=== PATIENT | female | born 1985 | race Hispanic/Latino ===

== ENCOUNTER 2017-07-20 06:46 | Emergency (ER) | payer BC ==
[2017-07-20 07:39] VITALS: BMI 22.4
--- NOTE | 2017-07-20 08:36 | ED PDOC ---
HPI: Eye Injury/Pain Time Seen by Provider: 07/20/17 07:05 Chief Complaint (Nursing): Eye Problem Chief Complaint (Provider): Eye Problem History Per: Patient History/Exam Limitations: no limitations Onset/Duration Of Symptoms: Hrs Current Symptoms Are (Timing): Still Present Associated Symptoms: denies: Pain, Decreased Vision Additional Complaint(s): Mei Gutiérrez, a 31 year old female, presents to the ED complaining that she is having a hard time focusing. The patient states that she looked at the eclipse yesterday, with glasses and then an hour later her symptoms began. She reports that she was using contacts then but now she is using her glasses and it feels like the same thing. Patient also notes feeling bit light headed. Denies eye pain, loss of vision Past Medical History Reviewed: Historical Data, Nursing Documentation, Vital Signs - Medical History PMH: No Chronic Diseases - Surgical History Surgical History: No Surg Hx - Family History Family History: States: Unknown Family Hx - Immunization History Hx Tetanus Toxoid Vaccination: No Hx Influenza Vaccination: No Hx Pneumococcal Vaccination: No - Allergies Allergies/Adverse Reactions: Allergies Allergy/AdvReac Type Severity Reaction Status Date / Time miconazole Allergy RASH Verified 07/20/17 07:39 [From Neosporin AF] Review of Systems ROS Statement: Except As Marked, All Systems Reviewed And Found Negative Eyes: Negative for: Pain, Vision Change Physical Exam - Reviewed Nursing Documentation Reviewed: Yes Vital Signs Reviewed: Yes - Physical Exam Appears: Positive for: Non-toxic, No Acute Distress Head Exam: Positive for: ATRAUMATIC, NORMAL INSPECTION, NORMOCEPHALIC Eye Exam: Positive for: Normal appearance, EOMI, PERRL. 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 Negative for: Motor/Sensory Deficits, Aphasia, Facial Droop - ECG Pulse Ox Interpretation: Normal Medical Decision Making Medical Decision Makin Initial Impression: 31 year old female presenting with eye problems Initial Plan: * Visual exam * Ophtho consult 729 Will consult ophthalmology [phone] Spoke with Sb, who would like for patient to come and see him in his office. Scribe Attestation Documented by Iris Stevenson acting as a scribe for Suni Abreu MD. Provider Attestation All medical record entries made by the Scribe were at my direction and personally dictated by me. I have reviewed the chart and agree that the record accurately reflects my personal performance of the history, physical exam, medical decision making, and the department course for this patient. I have also personally directed, reviewed, and agree with the discharge instructions and disposition. Disposition - Clinical Impression Clinical Impression: Blurry vision - Disposition Referrals: Harish Basurto MD [Staff Provider] - Disposition: Routine/Home (Dr. Basurto's office) Disposition Time: 07:57 Condition: STABLE Instructions: Blurred Vision (ED) Forms: [facility] (Upper [place])
== END 2017-07-20 08:07 | disposition home or self-care (01) ==
LOC: H.ER 06:46
DX: H53.8 Other visual disturbances (principal)